=== PATIENT | male | born 1970 | race Caucasian/White ===

== ENCOUNTER 2018-04-19 01:51 | Emergency (ER) | payer BC, OTHER ==
--- NOTE | 2018-04-19 01:54 | PDOC ---
History of Present Illness - General Chief Complaint: Lethargy Stated Complaint: LETHARGIC Time Seen by Provider: 04/19/18 01:53 History Source: Co-worker Exam Limitations: Other (lethargic and does not answer questions) - History of Present Illness Initial Comments: 04/19/18 02:20 This is a 47-year-old male who was brought in by a friend/coworker because she felt like he was having difficulty breathing. History is very difficult to obtain as coworker says she does not know very much about the patient. Coworker said that she noted him to be having difficulty breathing and seemed to be choking so she brought him in by private vehicle. She also stated at one point that she was a neighbor. Otherwise she denies knowing his history she did bring some pills in with him and said he had taken 3 of the Soma tablets. Otherwise she did not know if he had a history of alcohol use or any other substance use. We attempted to call his that was listed as the contact but the phone number had been disconnected. The coworker said that him and the were not together's anymore PAST MEDICAL HISTORY: Unobtainable PAST SURGICAL HISTORY: no significant history FAMILY HISTORY: no pertinant history SOCIAL HISTORY: Pt is employed. MEDICATIONS: reviewed ALLERGIES: Unknown ROS Is unobtainable Exam: General: Well-nourished well-developed individual, no acute distress HEENT: Throat: Normal, tonsils normal, no erythema or exudate Neck: Supple, no meningeal signs, no lymphadenopathy Eyes::Pupils equal reactive and round, extraocular motion intact Chest: Nontender to palpation Cardiac: S1-S2 normal, regular rate and rhythm, no murmurs rubs or gallops Respiratory: Lungs there is some mild expiratory wheezing bilateral Abdomen: Soft, nondistended, normal bowel sounds, there is no tenderness on palpation diffusely Extremities: Warm, dry, no cyanosis, clubbing, or edema Skin: No rashes Neuro: Patient is lethargic with some sonorous respirations that are intermittent patient is arousable and does attempt to answer questions but speech is slurred with positive alcohol on breath. Patient otherwise has a nonfocal exam and moves all extremities Assessment and plan: This is a 47-year-old male who was brought in by coworker for evaluation of difficulty breathing however on arrival here patient was noted to be lethargic with sonorous respirations that were intermittent. Patient 's O2 sat was 96% on room air and his vitals were otherwise normal. Patient was noted to have positive alcohol on breath. A workup was obtained including CBC, comp, urine drug tox, alcohol level, head CT 04/19/18 02:43 Patient more alert and able to answer questions now patient said that he drank heavily this evening and then took 3 Soma tablets. Patient otherwise denies any complaints. His workup is still pending. 04/19/18 03:[address] no acute pathology Patient's workup was negative for any acute pathology. Patient awake and alert patient admits to drinking heavily and taking the soma tablets but says he wasn' t trying to hurt himself. His Blood alcohol was 230. Patient's friend will take him home and stay with him. Patient discharged home patient able to get out of bed and ambulate with some assistance. His friend says she was comfortable taking him home and staying with him. Past History - Past Medical History Allergies/Adverse Reactions: Allergies Allergy/AdvReac Type Severity Reaction Status Date / Time No Known Allergies Allergy Verified 04/19/18 02:02 Home Medications: Ambulatory Orders Carisoprodol [Soma] 350 mg PO DAILY 04/19/18 Ibuprofen 600 mg PO PRN 04/19/18 Phentermine HCl 37.5 mg PO DAILY 04/19/18 Sildenafil Citrate [Viagra] 100 mg PO DAILY 04/19/18 ED Treatment Course - LABORATORY CBC & Chemistry Diagram: 04/19/18 02:29 04/19/18 02:29 *DC/Admit/Observation/Transfer Diagnosis at time of Disposition: Acute alcohol intoxication Qualifiers: Complication of substance-induced condition: uncomplicated Qualified Code(s): F10.929 - Alcohol use, unspecified with intoxication, unspecified - Discharge Dispostion Disposition: HOME Condition at time of disposition: Stable Decision to Admit order: No - Referrals - Patient Instructions Additional Instructions: Do not take your pain medication and drink alcohol. Return to the emergency department immediately with ANY new, persistent or worsening symptoms. Continue any medications as previously prescribed by your physician. You should follow up with your primary doctor as soon as possible regarding today's emergency department visit. . Please make sure your doctor reviews the results of your emergency evaluation. Thank you for coming to the Emergency Department today for your care. It was a pleasure to see you today. Please note that your evaluation is INCOMPLETE until you follow-up with your doctor. - Post Discharge Activity
[2018-04-19 02:05] VITALS: BMI 31.7
[2018-04-19] MEDS ORDERED: SODIUM CHLORIDE 1,000 ML IV ONE (02:06)
[2018-04-19 02:47] LABS: HEMATOCRIT 50.9 % (35.4-49); HEMOGLOBIN 17.2 GM/dL (11.7-16.9); MCH 31.7 pg (25.7-33.7); MCHC 33.7 g/dl (32.0-35.9); MEAN CELL VOLUME 93.9 fl (80-96); PLATELET COUNT 266 K/MM3 (134-434); RBC 5.42 M/mm3 (4.00-5.60); RDW 14.7 % (11.9-15.9); WHITE BLOOD COUNT 7.3 K/mm3 (4.0-10.0)
[2018-04-19 02:48] LABS: BASO % 0.7 % (0-2.0); EOS % 5.1 % (0-4.5); LYMPH % 36.6 % (8-40); MEAN PLT VOLUME 8.3 fl (7.5-11.1); MONO % 6.2 % (3.8-10.2); NEUT % 51.4 % (42.8-82.8)
[2018-04-19 03:21] LABS: ALBUMIN 4.5 g/dl (3.4-5.0); ALK PHOS 49 U/L (45-117); ANION GAP 13 MMOL/L (8-16); BILIRUBIN,TOTAL 0.2 mg/dL (0.2-1); BLOOD UREA NITROGEN 12 mg/dL (7-18); CALCIUM 8.3 mg/dL (8.5-10.1); CHLORIDE 109 mmol/L (98-107); CO2 23 mmol/L (21-32); CREATININE 0.8 mg/dL (0.55-1.3); GLUCOSE,RANDOM 80 mg/dL (74-106); POTASSIUM 4.1 mmol/L (3.5-5.1); SGOT/AST 18 U/L (15-37); SGPT/ALT 25 U/L (13-61); SODIUM 144 mmol/L (136-145); TOT PROT 7.6 g/dl (6.4-8.2)
[2018-04-19 03:39] VITALS: BP 107/65; PULSE 82
--- NOTE | 2018-04-19 16:11 | EKG ---
Test Reason : Blood Pressure : / mmHG Vent. Rate : 082 BPM Atrial Rate : 082 BPM P-R Int : 176 ms QRS Dur : 100 ms QT Int : 392 ms P-R-T Axes : 056 014 023 degrees QTc Int : 457 ms NORMAL SINUS RHYTHM POSSIBLE LEFT ATRIAL ENLARGEMENT INCOMPLETE RIGHT BUNDLE BRANCH BLOCK BORDERLINE ECG NO PREVIOUS ECGS AVAILABLE Confirmed by MD ISIDRA, NEMO ([id number]) on 04/19/2018 4:11:30 PM Referred By: DR FELDER Confirmed By:NEMO MINER MD
== END 2018-04-19 04:16 | disposition home or self-care (01) ==
LOC: FER 01:51
PROC: 3E0337Z Introduction of Electrolytic and Water Balance Substance into Peripheral Vein, Percutaneous Approach (ICD-10-PCS; principal; 2018-04-19)
DX: F10.929 Alcohol use, unspecified with intoxication, unspecified (principal)
CPT/HCPCS: 36415; 70450-TC; 71045-TC-FY; 80053; 80307; 82550; 84484; 85025; 93005; 99282-25; J7030

== ENCOUNTER 2020-07-18 10:19 | Emergency (ER) | payer OTHER | END 2020-07-18 11:53 | disposition home or self-care (01) | LOC: JVIRT 10:19 | DX: Z11.52 Encounter for screening for COVID-19 (principal) | CPT/HCPCS: G2012-GT; Q3014-GT ==

== ENCOUNTER 2020-08-03 10:18 | Emergency (ER) | payer OTHER | END 2020-08-03 11:14 | disposition home or self-care (01) | LOC: JVIRT 10:18 | DX: Z20.822 Contact with and (suspected) exposure to COVID-19 (principal) | CPT/HCPCS: C9803; G2251-GT; Q3014-GT; U0003 ==

== ENCOUNTER 2020-08-30 11:54 | Emergency (ER) | payer OTHER | END 2020-08-30 13:07 | disposition home or self-care (01) | LOC: JVIRT 11:54 | DX: U07.1 COVID-19 (principal) | CPT/HCPCS: C9803; G2251-GT; Q3014-GT; U0003 ==

== ENCOUNTER 2020-09-24 12:36 | Emergency (ER) | payer OTHER ==
[2020-09-25 11:07] LABS: SARS-CoV-2 NAA Not Detected (Not Detected)
== END 2020-09-24 13:12 | disposition home or self-care (01) ==
LOC: JVIRT 12:36
DX: Z11.52 Encounter for screening for COVID-19 (principal)
CPT/HCPCS: C9803; G2251-GT; Q3014-GT; U0003; U0005

== ENCOUNTER 2023-05-14 19:45 | Emergency (ER) | payer OTHER ==
[2023-05-14] MEDS ORDERED: FLUORESCEIN NA 1 EA STRIP ONE (19:50)
[2023-05-14] MEDS ORDERED: TETRACAINE 0.5% OPHTH SOLN 2 ML BOTTLE ONE (19:50)
[2023-05-14 20:03] VITALS: BP 134/93; PULSE 101; RESP 18; TEMP 98.7; BMI 31.7
[2023-05-14] MEDS ORDERED: TOBRA 0.3%/DEXAMETH 0.1% OPHTHALMIC SUSP 2.5 ML BTL OS STA (20:42)
[2023-05-14] MEDS ORDERED: TOBRA 0.3%/DEXAMETH 0.1% OPHTHALMIC SUSP 2.5 ML BTL ONE (20:44)
== END 2023-05-14 20:53 | disposition home or self-care (01) ==
LOC: FER 19:45
DX: T15.92XA Foreign body on external eye, part unspecified, left eye, initial encounter (principal); S05.02XA Injury of conjunctiva and corneal abrasion without foreign body, left eye, initial encounter; X58.XXXA Exposure to other specified factors, initial encounter
CPT/HCPCS: 99283-25

== ENCOUNTER 2023-05-21 19:07 | Emergency (ER) | payer OTHER ==
[2023-05-21 19:13] VITALS: RESP 16; BMI 31.7
[2023-05-21] MEDS ORDERED: ERYTHROMYCIN 0.5% OPHTHALMIC OINTMENT 3.5 GM TUBE OU ONE (19:19)
[2023-05-21] MEDS ORDERED: TETRACAINE 0.5% HCL 0.6ML DROPPER.BOTTLE OU ONE (19:19)
[2023-05-21] MEDS ORDERED: FLUORESCEIN NA 1 EA STRIP OU ONE (19:19)
[2023-05-21] MEDS ORDERED: TETRACAINE 0.5% OPHTH SOLN 2 ML BOTTLE ONE (19:24)
[2023-05-21] MEDS ORDERED: FLUORESCEIN NA 1 EA STRIP ONE (19:25)
[2023-05-21] MEDS ORDERED: ERYTHROMYCIN 0.5% OPHTHALMIC OINTMENT 3.5 GM TUBE ONE (19:25)
[2023-05-21 19:44] VITALS: BP 112/67; PULSE 96; TEMP 98.5
== END 2023-05-21 20:35 | disposition home or self-care (01) ==
LOC: FER 19:07
DX: T15.02XA Foreign body in cornea, left eye, initial encounter (principal)
CPT/HCPCS: 99283-25

== ENCOUNTER 2024-11-01 10:31 | Inpatient (IN) | payer OTHER ==
[2024-11-01 10:44] VITALS: BMI 30.1
[2024-11-01] MEDS ORDERED: MORPHINE SULFATE 2 MG/ML SYRINGE ONE (11:39)
[2024-11-01] MEDS ORDERED: ACETAMINOPHEN INJECTION 100 ML ONE (11:39)
[2024-11-01] MEDS ORDERED: ONDANSETRON 4 MG/2 ML VIAL ONE (11:40)
[2024-11-01] MEDS: morphine CARPU-JECT 2 MG/1 ML DISP.SYRIN IVPUSH ONE (11:57)
[2024-11-01] MEDS: SODIUM CHLORIDE 0.9% 500 ML INFUS.BAG IV ONE (11:58)
[2024-11-01] MEDS: ACETAMINOPHEN 1000 MG/100 ML BAG IVPB ONE (11:59)
[2024-11-01] MEDS: ONDANSETRON 4 MG/2 ML VIAL IVPUSH ONE (11:59)
[2024-11-01 12:10] LABS: ABSOLUTE IMMATURE GRANULOCYTES 0.08 x10^3/uL (0.0-0.031); BASOPHILS # 0.06 x10^3/uL (0.01-0.08); EOSINOPHIL % 0.7 % (0.8-7.0); EOSINOPHILS # 0.09 x10^3/uL (0.04-0.54); HEMATOCRIT 46.6 % (40.1-51.0); HEMOGLOBIN 15.4 g/dL (13.7-17.5); MEAN CELL VOLUME 91.7 fl (79.0-92.2); MEAN PLT VOLUME 9.5 fl (9.4-12.4); MONOCYTE # 1.25 x10^3/uL (0.30-0.82); MONOCYTE % 9.2 % (5.3-12.2); PLATELET COUNT 352 x10^3/uL (163-337); RDW 12.8 % (12.2-16.1)
[2024-11-01 12:14] LABS: EPI CELLS 1 /uL (0-25.1); HYALINE CASTS 1 /uL (0-3.1); URINE APPEARANCE CLEAR; URINE BACTERIA 3 /uL (0-1359); URINE BILIRUBIN NEGATIVE (NEGATIVE); URINE COLOR DK YELLOW; URINE GLUCOSE (UA) NEGATIVE (NEGATIVE); URINE KETONE TRACE (NEGATIVE); URINE LEUK ESTERASE NEGATIVE (NEGATIVE); URINE NITRITE NEGATIVE (NEGATIVE); URINE PROTEIN 1+ (NEGATIVE); URINE RBC 11 /uL (0-23.9); URINE WBC 4 /uL (0-25.8)
[2024-11-01 12:35] LABS: ALBUMIN 3.7 g/dl (3.4-5.0); BLOOD UREA NITROGEN 13.7 mg/dL (7-18); CALCIUM 9.6 mg/dL (8.5-10.1); MAGNESIUM 2.1 mg/dL (1.8-2.4)
[2024-11-01 12:38] LABS: CREATININE 0.9 mg/dL (0.55-1.3)
[2024-11-01 12:40] LABS: BILIRUBIN,TOTAL 0.5 mg/dL (0.2-1); TOT PROT 7.3 g/dl (6.4-8.2)
[2024-11-01] MEDS ORDERED: ALBUTEROL SO4 2.5/IPRATROPIUM 0.5 INH SOL 3 ML VIAL.NEB. NEB ONE (14:17)
[2024-11-01] MEDS: ALBUTEROL SO4 2.5/IPRATROPIUM 0.5 INH SOL 3 ML VIAL.NEB. NEB ONE (14:22)
[2024-11-01] MEDS ORDERED: TRIMETHOBENZAMIDE HCL 200MG/2ML INJ IM PRN (16:24)
[2024-11-01] MEDS ORDERED: morphine CARPU-JECT 2 MG/1 ML DISP.SYRIN IVPUSH PRN (16:24)
[2024-11-01] MEDS ORDERED: MORPHINE SULFATE 2 MG/ML SYRINGE IVPUSH PRN (16:44)
[2024-11-01] MEDS: LACTATED RINGERS SOLUTION 1,000 ML/1,000 ML INFUS.BAG IV SCH (18:29)
[2024-11-01] MEDS: ACETAMINOPHEN 1000 MG/100 ML BAG IVPB PRN (19:57)
[2024-11-01] MEDS: ALBUTEROL SO4 2.5/IPRATROPIUM 0.5 INH SOL 3 ML VIAL.NEB. NEB SCH (20:05)
[2024-11-01] MEDS: traZODone HCL 50 MG TABLET (FP) PO SCH (22:47)
[2024-11-02] MEDS: LEVOTHYROXINE 100 MCG, LEVOTHYROXINE 75 MCG PO SCH (06:21)
[2024-11-02 08:09] LABS: ABSOLUTE IMMATURE GRANULOCYTES 0.05 x10^3/uL (0.0-0.031); BASOPHILS # 0.04 x10^3/uL (0.01-0.08); HEMATOCRIT 42.5 % (40.1-51.0); HEMOGLOBIN 13.8 g/dL (13.7-17.5); MCHC 32.5 g/dl (32.3-36.5); MEAN PLT VOLUME 9.3 fl (9.4-12.4); MONOCYTE # 0.98 x10^3/uL (0.30-0.82); MONOCYTE % 10.2 % (5.3-12.2); PLATELET COUNT 303 x10^3/uL (163-337); RDW 12.8 % (12.2-16.1)
[2024-11-02 09:02] LABS: POTASSIUM 4.9 mmol/L (3.5-5.1)
[2024-11-02 09:13] LABS: CALCIUM 9.6 mg/dL (8.5-10.1)
[2024-11-02 09:14] LABS: ALBUMIN 3.3 g/dl (3.4-5.0); BLOOD UREA NITROGEN 10.8 mg/dL (7-18); MAGNESIUM 2.3 mg/dL (1.8-2.4)
[2024-11-02 09:15] LABS: CREATININE 0.8 mg/dL (0.55-1.3)
[2024-11-02 09:16] LABS: BILIRUBIN,TOTAL 0.5 mg/dL (0.2-1); TOT PROT 6.4 g/dl (6.4-8.2)
[2024-11-02 09:17] LABS: PHOSPHOROUS 3.9 mg/dL (2.5-4.9)
[2024-11-02] MEDS: HEPARIN NA (PORCINE) 5,000 UNITS/ML 1ML VIAL SQ SCH (09:37)
[2024-11-02] MEDS ORDERED: LEVOTHYROXINE SODIUM 175 MCG PO SCH (10:00)
[2024-11-02] MEDS: KETOROLAC TROMETHAMINE 30 MG/1 ML VIAL IVPUSH PRN (10:19)
[2024-11-02] MEDS: TAMSULOSIN HCL 0.4 MG CAP PO ONE (14:27)
[2024-11-02] MEDS: SODIUM CHLORIDE 1,000 ML IV STA (14:35)
[2024-11-02] MEDS: ACETAMINOPHEN 1000 MG/100 ML BAG IVPB PRN (14:42)
[2024-11-02] MEDS: MONTELUKAST NA 10 MG TABLET PO SCH (21:19)
[2024-11-03 06:03] VITALS: RESP 18
[2024-11-03 08:46] LABS: ABSOLUTE IMMATURE GRANULOCYTES 0.04 x10^3/uL (0.0-0.031); BASOPHILS # 0.04 x10^3/uL (0.01-0.08); EOSINOPHILS # 0.06 x10^3/uL (0.04-0.54); HEMATOCRIT 40.8 % (40.1-51.0); HEMOGLOBIN 13.3 g/dL (13.7-17.5); MCHC 32.6 g/dl (32.3-36.5); MEAN CELL VOLUME 91.9 fl (79.0-92.2); MEAN PLT VOLUME 9.7 fl (9.4-12.4); MONOCYTE # 0.67 x10^3/uL (0.30-0.82); MONOCYTE % 11.6 % (5.3-12.2); PLATELET COUNT 310 x10^3/uL (163-337); RDW 12.7 % (12.2-16.1)
[2024-11-03 09:06] LABS: POTASSIUM 4.5 mmol/L (3.5-5.1)
[2024-11-03 09:07] LABS: CALCIUM 9.2 mg/dL (8.5-10.1)
[2024-11-03 09:08] LABS: ALBUMIN 3.2 g/dl (3.4-5.0); BLOOD UREA NITROGEN 7.9 mg/dL (7-18)
[2024-11-03] MEDS: POLYETHYLENE GLYCOL (HEALTHYLAX) 3350 17 GM PACKET PO SCH (09:09)
[2024-11-03] MEDS: TAMSULOSIN HCL 0.4 MG CAP PO SCH (09:09)
[2024-11-03 09:11] LABS: PHOSPHOROUS 3.8 mg/dL (2.5-4.9)
[2024-11-03 09:12] LABS: BILIRUBIN,TOTAL 0.5 mg/dL (0.2-1); TOT PROT 6.2 g/dl (6.4-8.2)
[2024-11-03 09:13] LABS: CREATININE 0.9 mg/dL (0.55-1.3)
[2024-11-03] MEDS: FLUTICASONE/UMECLIDIN/VILANTER(200-62.5-25 TRELEGY ELLIPTA) INAHLER IH SCH (12:23)
[2024-11-03] MEDS: BUDESONIDE/FORMETEROL FUMARATE 160/4.5 mcg INHALER IH SCH (14:18)
[2024-11-03 14:59] VITALS: BP 117/80; PULSE 90; TEMP 98.1
[2024-11-04] MEDS ORDERED: metroNIDAZOLE 250 MG TABLET PO SCH (06:00)
[2024-11-04] MEDS ORDERED: levoFLOXacin 750 MG TABLET PO SCH (10:00)
== END 2024-11-03 17:10 | disposition home or self-care (01) | DRG 244 ==
LOC: JER 10:31 → JERBED 15:28 → J8W 17:06
PROVIDERS: ADMIT Internal Medicine; ATTEND Nurse Practitioner Acute Care
DX: K57.20 Diverticulitis of large intestine with perforation and abscess without bleeding (principal); E03.9 Hypothyroidism, unspecified; J45.909 Unspecified asthma, uncomplicated; R00.0 Tachycardia, unspecified; R10.9 Unspecified abdominal pain; R11.0 Nausea; D72.829 Elevated white blood cell count, unspecified; K40.20 Bilateral inguinal hernia, without obstruction or gangrene, not specified as recurrent; R39.11 Hesitancy of micturition; E66.811 Obesity, class 1; Z68.30 Body mass index [BMI] 30.0-30.9, adult
CPT/HCPCS: 36415; 71046-TC-FY; 74177-TC; 76856-TC; 80053; 81003; 83605; 83690; 83735; 84100; 85025; 86140; 87040; 87086; 93005; 93010; 94640; 99291; J0131; J1644; Q9967

== ENCOUNTER 2025-01-25 10:44 | Observation (INO) | payer OTHER ==
[2025-01-25] MEDS ORDERED: methylPREDNISolone NA SUCC 125 MG/2 ML VIAL ONE (11:40)
[2025-01-25] MEDS ORDERED: MAGNESIUM SULFATE IN WATER 2 GM/50 ML IVPB IVPB ONE (11:41)
[2025-01-25] MEDS: ALBUTEROL SO4 2.5/IPRATROPIUM 0.5 INH SOL 3 ML VIAL.NEB. NEB SCH ×2 (11:57→19:53)
[2025-01-25] MEDS: MAGNESIUM SULFATE IN WATER 2 GM/50 ML IVPB IVPB ONE (11:57)
[2025-01-25] MEDS: methylPREDNISolone NA SUCC 125 MG/2 ML VIAL IVPB ONE (11:57)
[2025-01-25] MEDS ORDERED: ALBUTEROL SO4 2.5/IPRATROPIUM 0.5 INH SOL 3 ML VIAL.NEB. NEB ONE (12:00)
[2025-01-25 12:03] LABS: ABSOLUTE IMMATURE GRANULOCYTES 0.06 x10^3/uL (0.0-0.031); BASOPHILS # 0.06 x10^3/uL (0.01-0.08); EOSINOPHIL % 6.0 % (0.8-7.0); EOSINOPHILS # 0.55 x10^3/uL (0.04-0.54); MCHC 32.6 g/dl (32.3-36.5); MEAN CELL VOLUME 94.4 fl (79.0-92.2); MEAN PLT VOLUME 9.1 fl (9.4-12.4); MONOCYTE # 0.66 x10^3/uL (0.30-0.82); MONOCYTE % 7.2 % (5.3-12.2); RDW 14.3 % (12.2-16.1)
[2025-01-25 12:35] LABS: GLUCOSE,RANDOM 101.0 mg/dL (74-106)
[2025-01-25 12:36] LABS: CO2 31.0 mmol/L (21-32)
[2025-01-25 12:39] LABS: CREATININE 0.7 mg/dL (0.55-1.3); SGOT/AST 10.0 U/L (15-37); SGPT/ALT 24.0 U/L (13-61)
[2025-01-25 12:41] LABS: TOT PROT 7.3 g/dl (6.4-8.2)
[2025-01-25 12:42] LABS: ALK PHOS 114.0 U/L (45-117)
[2025-01-25] MEDS ORDERED: morphine CARPU-JECT 4 MG/1 ML DISP.SYRIN IVPUSH PRN (15:58)
[2025-01-25] MEDS ORDERED: MORPHINE SULFATE 2 MG/ML SYRINGE ONE (16:24)
[2025-01-25] MEDS: ALBUTEROL SO4 HFA INHALER IH PRN (16:31)
[2025-01-25] MEDS: morphine CARPU-JECT 4 MG/1 ML DISP.SYRIN IVPUSH PRN (16:33)
[2025-01-25] MEDS: methylPREDNISolone NA SUCC 40 MG/1 ML VIAL IVPUSH SCH ×2 (18:08→18:13)
[2025-01-25 19:24] VITALS: BMI 30.7
[2025-01-25] MEDS: MONTELUKAST NA 10 MG TABLET PO SCH (21:49)
[2025-01-25] MEDS: traZODone HCL 50 MG TABLET (FP) PO SCH (21:50)
[2025-01-25] MEDS: SIMETHICONE 80 MG TAB.CHEW (FP) PO ONE (21:53)
[2025-01-26] MEDS: BUDESONIDE/FORMETEROL FUMARATE 160/4.5 mcg INHALER IH SCH (00:15)
[2025-01-26] MEDS: BENZONATATE 200 MG CAPSULE PO ONE (00:38)
[2025-01-26] MEDS: BUDESONIDE/FORMETEROL FUMARATE 160/4.5 mcg INHALER IH ONE (00:38)
[2025-01-26] MEDS: MELATONIN 5 MG TABLETS PO ONE (02:07)
[2025-01-26] MEDS: LEVOTHYROXINE 100 MCG, LEVOTHYROXINE 75 MCG PO SCH (06:49)
[2025-01-26] MEDS ORDERED: methylPREDNISolone NA SUCC 40 MG/1 ML VIAL IVPUSH SCH (08:00)
[2025-01-26 08:26] LABS: MCHC 32.7 g/dl (32.3-36.5); MEAN CELL VOLUME 91.8 fl (79.0-92.2); MEAN PLT VOLUME 9.4 fl (9.4-12.4); RDW 13.8 % (12.2-16.1)
[2025-01-26 08:59] LABS: CO2 26.0 mmol/L (21-32); GLUCOSE,RANDOM 124.0 mg/dL (74-106)
[2025-01-26 09:01] LABS: SGPT/ALT 24.0 U/L (13-61)
[2025-01-26 09:02] LABS: CREATININE 0.7 mg/dL (0.55-1.3); SGOT/AST 10.0 U/L (15-37)
[2025-01-26 09:03] LABS: TOT PROT 6.9 g/dl (6.4-8.2)
[2025-01-26 09:05] LABS: ALK PHOS 104.0 U/L (45-117)
[2025-01-26] MEDS ORDERED: LEVOTHYROXINE SODIUM 175 MCG PO SCH (10:00)
[2025-01-26] MEDS: POLYETHYLENE GLYCOL (HEALTHYLAX) 3350 17 GM PACKET PO SCH (10:35)
[2025-01-26] MEDS: ENOXAPARIN NA (PORCINE) 40 MG/0.4 ML DISP.SYRIN SQ SCH (10:35)
[2025-01-26] MEDS: morphine CARPU-JECT 2 MG/1 ML DISP.SYRIN IVPUSH PRN (23:13)
[2025-01-27 08:25] LABS: MCHC 32.8 g/dl (32.3-36.5); MEAN CELL VOLUME 93.0 fl (79.0-92.2); MEAN PLT VOLUME 9.6 fl (9.4-12.4); RDW 14.1 % (12.2-16.1)
[2025-01-27 09:11] LABS: CO2 29.0 mmol/L (21-32)
[2025-01-27 09:12] LABS: GLUCOSE,RANDOM 105.0 mg/dL (74-106)
[2025-01-27 09:14] LABS: SGPT/ALT 28.0 U/L (13-61)
[2025-01-27 09:15] LABS: CREATININE 0.8 mg/dL (0.55-1.3); SGOT/AST 10.0 U/L (15-37)
[2025-01-27 09:16] LABS: TOT PROT 7.7 g/dl (6.4-8.2)
[2025-01-27 09:17] LABS: ALK PHOS 109.0 U/L (45-117)
[2025-01-27] MEDS: ACETAMINOPHEN 1000 MG/100 ML BAG IVPB PRN (10:42)
[2025-01-27] MEDS: ACETAMINOPHEN W/ CODEINE LIQ 5 ML CUP PO PRN (17:51)
[2025-01-27] MEDS: morphine CARPU-JECT 2 MG/1 ML DISP.SYRIN IVPUSH ONE (20:10)
[2025-01-27] MEDS: guaiFENesin/D-METHORPHAN HB 10 ML UNIT-DOSE CUPS PO PRN (21:17)
[2025-01-28 02:59] LABS: HIV INTERPRETATION NEGATIVE (NEGATIVE)
[2025-01-28] MEDS: morphine CARPU-JECT 2 MG/1 ML DISP.SYRIN IVPUSH ONE (03:42)
[2025-01-28 12:34] LABS: ABSOLUTE IMMATURE GRANULOCYTES 0.22 x10^3/uL (0.0-0.031); BASOPHILS # 0.02 x10^3/uL (0.01-0.08); EOSINOPHIL % 0.1 % (0.8-7.0); EOSINOPHILS # 0.01 x10^3/uL (0.04-0.54); MCHC 32.8 g/dl (32.3-36.5); MEAN CELL VOLUME 92.7 fl (79.0-92.2); MEAN PLT VOLUME 9.2 fl (9.4-12.4); MONOCYTE # 0.48 x10^3/uL (0.30-0.82); MONOCYTE % 3.3 % (5.3-12.2); RDW 13.6 % (12.2-16.1)
[2025-01-28 13:07] LABS: CO2 27.0 mmol/L (21-32)
[2025-01-28 13:08] LABS: GLUCOSE,RANDOM 126.0 mg/dL (74-106)
[2025-01-28 13:09] LABS: SGPT/ALT 32.0 U/L (13-61)
[2025-01-28 13:11] LABS: CREATININE 0.8 mg/dL (0.55-1.3); SGOT/AST 10.0 U/L (15-37)
[2025-01-28 13:12] LABS: TOT PROT 7.2 g/dl (6.4-8.2)
[2025-01-28 13:13] LABS: ALK PHOS 95.0 U/L (45-117)
[2025-01-28] MEDS ORDERED: ACETAMINOPHEN 1000 MG/100 ML BAG IVPB PRN (13:47)
[2025-01-28] MEDS: methylPREDNISolone NA SUCC 40 MG/1 ML VIAL IVPUSH SCH (21:38)
[2025-01-28 21:43] LABS: HCV DIAGNOSTIC IN-HOUSE W/RFLX NON-REACTIVE (NONREACTIVE)
[2025-01-28 21:44] VITALS: RESP 18
[2025-01-29 04:05] VITALS: TEMP 97.9
[2025-01-29 09:05] LABS: MCHC 32.6 g/dl (32.3-36.5); MEAN CELL VOLUME 93.6 fl (79.0-92.2); MEAN PLT VOLUME 9.5 fl (9.4-12.4); RDW 13.6 % (12.2-16.1)
[2025-01-29 09:37] LABS: CO2 29.0 mmol/L (21-32); GLUCOSE,RANDOM 86.0 mg/dL (74-106); SGPT/ALT 38.0 U/L (13-61)
[2025-01-29 09:38] LABS: CREATININE 0.77 mg/dL (0.55-1.3); SGOT/AST 10.0 U/L (15-37)
[2025-01-29 09:40] LABS: TOT PROT 6.8 g/dl (6.4-8.2)
[2025-01-29 09:41] LABS: ALK PHOS 87.0 U/L (45-117)
[2025-01-29] MEDS ORDERED: ACETAMINOPHEN 1000 MG/100 ML BAG IVPB PRN (13:24)
[2025-01-29] MEDS ORDERED: guaiFENesin/CODEINE 10 ML UNIT-DOSE CUPS PO PRN (13:25)
[2025-01-29] MEDS: KETOROLAC TROMETHAMINE 15 MG/ML VIAL IVPUSH ONE (13:59)
[2025-01-29 14:06] VITALS: BP 135/87; PULSE 91
[2025-01-29] MEDS: LIDOCAINE 5% TOPICAL PATCH TP SCH (14:29)
[2025-01-29] MEDS ORDERED: LIDOCAINE 5% TOPICAL PATCH TP SCH (15:09)
[2025-01-29] MEDS: IBUPROFEN 600 MG TABLET (FP) PO PRN (15:46)
[2025-01-29] MEDS ORDERED: LIDOCAINE PATCH REMOVAL MC SCH ×2 (22:00)
[2025-01-30] MEDS ORDERED: predniSONE 20 MG TABLET (UD) PO SCH (10:00)
== END 2025-01-29 18:51 | disposition home or self-care (01) ==
LOC: JER 10:44 → JERBED 15:26 → J6S 17:10
PROVIDERS: ADMIT Internal Medicine; ATTEND Internal Medicine
PROC: 3E033NZ Introduction of Analgesics, Hypnotics, Sedatives into Peripheral Vein, Percutaneous Approach (ICD-10-PCS; principal; 2025-01-25)
PROC: 3E0F7GC Introduction of Other Therapeutic Substance into Respiratory Tract, Via Natural or Artificial Opening (ICD-10-PCS; 2025-01-25)
PROC: 3E0333Z Introduction of Anti-inflammatory into Peripheral Vein, Percutaneous Approach (ICD-10-PCS; 2025-01-25)
PROC: 3E033GC Introduction of Other Therapeutic Substance into Peripheral Vein, Percutaneous Approach (ICD-10-PCS; 2025-01-25)
DX: J96.01 Acute respiratory failure with hypoxia (principal); S22.41XA Multiple fractures of ribs, right side, initial encounter for closed fracture; J44.1 Chronic obstructive pulmonary disease with (acute) exacerbation; E66.811 Obesity, class 1; E03.9 Hypothyroidism, unspecified; W18.39XA Other fall on same level, initial encounter; J98.4 Other disorders of lung; Y93.89 Activity, other specified; Y92.89 Other specified places as the place of occurrence of the external cause; K57.90 Diverticulosis of intestine, part unspecified, without perforation or abscess without bleeding; Z88.0 Allergy status to penicillin
CPT/HCPCS: 36415; 71045-TC-FY; 71250-TC; 80053; 83735; 84100; 84484; 85025; 85027; 86803; 87389; 87637-QW; 93005; 93010; 94150; 94640; 94761; 96365; 96372; 96375; 96376; 99285-25; G0378